=== PATIENT | female | born 1965 | race Caucasian/White ===

== ENCOUNTER 2021-10-19 10:50 | Outpatient (CLI) | payer MEDICARE | END 2021-10-19 10:51 | disposition home or self-care (01) | LOC: CSHMAMMO 10:50 | PROVIDERS: ATTEND Obstetrics & Gynecology | DX: Z13.820 Encounter for screening for osteoporosis (principal); M85.851 Other specified disorders of bone density and structure, right thigh | CPT/HCPCS: 77080 ==

== ENCOUNTER 2021-12-25 14:17 | Outpatient (CLI) | payer MEDICARE | END 2021-12-25 14:18 | disposition home or self-care (01) | LOC: CSHMRI 14:17 | PROVIDERS: ATTEND Otolaryngology Plastic Surgery within the Head & Neck | DX: H91.8X3 Other specified hearing loss, bilateral (principal); H83.91 Unspecified disease of right inner ear | CPT/HCPCS: 70553 ==